=== PATIENT | male | born 1970 | race Two or more races ===

== ENCOUNTER → 2024-05-25 | Emergency (ER) | payer BC ==
[~2024-05-25] VITALS: Ht 175.3 cm; Wt 90.7 kg
[~2024-05-25] MED LIST: 0.9 % SODIUM CHLORIDE 1,000 ML IV ONE; ASPIRIN 325 MG TABLET PO NR; ASPIRIN 325 MG TABLET.EC PO ONE; ATORVASTATIN CALCIUM 40 MG TABLET PO ONE; FAMOTIDINE/PF 20 MG/2 ML VIAL IV PUSH STA; FAMOTIDINE/PF 20 MG/2 ML VIAL ONE; FLUMAZENIL 0.5 MG/5 ML ML IV ONE; NITROGLYCERIN IN 5 % DEXTROSE 250 ML IV SCH; NITROGLYCERIN IN 5 % DEXTROSE 50 MG/250 ML BOTTLE IV ONE; ONDANSETRON HCL 2 MG/ML VIAL IV STA; ONDANSETRON HCL 2 MG/ML VIAL ONE; OSELTAMIVIR PHOSPHATE 75 MG CAPSULE PO ONE; SODIUM BICARBONATE 1 MEQ/ML DISP.SYRIN 50ML IV STA; TICAGRELOR 90 MG TABLET PO ONE
[2024-05-25 03:54] LABS: ABG PH 7.204 (7.35-7.45); ABG PO2 80.3 mmHg (80-100); ABG pCO2 50.8 mmHg (35-45); BASE EXCESS -8.7 mmol/l; BICARBONATE 19.6 mmol/l (23-25); SaO2 91.7 %; Tco2 21.1 mmol/l; allen test SATISFACTORY; o2 21 %; puncture site RADIAL RIGHT
[2024-05-25 03:55] LABS: HEMATOCRIT 39.2 % (39.0-48.0); HEMOGLOBIN 13.5 g/dL (13-16.00); MEAN CELL VOLUME 90.3 fL (80.0-100.00); MEAN CORPUSCULAR HGB CONC 34.3 g/dl (32.0-36.0); PLATELET COUNT 238 K/uL (150-450); RED BLOOD COUNT 4.34 M/uL (4.00-6.00); RED CELL DISTRIBUTION WIDTH 14.1 % (11.5-14.5)
[2024-05-25 04:04] LABS: INR 1.03; PARTIAL THROMBOPLASTIN TIME 21.4 SECONDS (22.0-34.0); PROTHROMBIN TIME 10.8 SECONDS (9.0-11.5)
[2024-05-25 04:08] LABS: ALBUMIN 3.6 gm/dL (3.4-5.0); BILIRUBIN TOTAL 0.28 mg/dL (0.3-1.2); CALCIUM 8.2 mg/dL (8.5-10.1); CREATININE SERUM 1.72 mg/dL (0.70-1.30); GFR 42.13; GLOBULINA 3.5 G/DL (2.4-3.5); POTASSIUM 3.5 mEq/L (3.5-5.1); TOTAL PROTEIN 7.1 gm/dL (6.4-8.2)
[2024-05-25 10:25] LABS: PH,URINE 5.5 (5.0-8.0); URINE APPEARANCE Clear; URINE BILIRRUBIN Negative (NEGATIVE); URINE BLOOD Trace; URINE COLOR Yellow; URINE LEUKOCYTE Negative; URINE NITRATE Negative; URINE PROTEIN 30 (NEGATIVE); URINE UROBILINOGEN 0.2 E.U./dl
[2024-05-25 10:26] LABS: URINE BACTERIA 304.8 uL (0.0-1933); URINE EPITHELIAL CELLS 52.4 uL (0.0-38.8); URINE RBC 2.2 uL (0.0-20.8); URINE WBC 20.8 uL (0.0-23.2)
[2024-05-25 10:40] LABS: URINE CRYSTALS FEW /HPF; URINE GLUCOSE 100 MG/DL (NEGATIVE)
[2024-05-25 11:11] LABS: COCAINE POSITIVE (NEGATIVE); METHADONE NEGATIVE (NEGATIVE); OPIATES NEGATIVE (NEGATIVE); THC ( Cannabinoids) NEGATIVE (NEGATIVE)
== END | disposition left against medical advice (07) ==
LOC: ER 03:06
PROVIDERS: General Practice
DX: I21.29 ST elevation (STEMI) myocardial infarction involving other sites (principal); F10.129 Alcohol abuse with intoxication, unspecified; I10 Essential (primary) hypertension